=== PATIENT | male | born 1930 | race Caucasian/White ===

== ENCOUNTER → 2018-07-30 | Outpatient (CLI) | payer BC, MEDICARE ==
--- NOTE | 2018-07-30 14:31 | XR ---
EXAMINATION TYPE: XR bone survey complete DATE OF EXAM: 07/30/2018 COMPARISON: NONE HISTORY: Leukocytosis ptosis abnormal blood tests Findings: Hypertrophic and degenerative change of the visualized portion of the cervical spine seen to the leve l C5 noted. There is a kyphosis and retrolisthesis of C3 and C4. Facet arthropathy noted. Recommend f ollow-up MRI. Atherosclerotic change of the aorta. Consolidation along the medial margin the right lung base. No de structive bony lesions. Bilateral upper extremity images demonstrate no diagnostic evidence of the multiple myeloma. No defin ite intraosseous lesions seen. Calvarium is intact with no bony lesions seen. Arthropathy of the hips and degenerative change of the spine noted. No diagnostic osseous lesions. Thoracic and lumbar spine demonstrate multilevel severe degenerative disc disease and hypertrophic sp urring. Surgical clips in the right upper quadrant noted. There is a large abdominal aortic aneurysm measuring 7.2 cm. Images of the lower extremities demonstrate arthritic changes but no diagnostic evidence of multiple myeloma. Vascular calcifications are seen and there is arthropathy of the knee joint. IMPRESSION: 1. No diagnostic evidence of multiple myeloma 2. There is a 7.2 cm abdominal aortic aneurysm. Report called to the referring clinician by telephone .
== END ==
LOC: RADXRMAIN 11:16
PROVIDERS: ATTEND Internal Medicine Hematology & Oncology
DX: D72.829 Elevated white blood cell count, unspecified (principal); D60.9 Acquired pure red cell aplasia, unspecified; D69.6 Thrombocytopenia, unspecified; J44.9 Chronic obstructive pulmonary disease, unspecified
CPT/HCPCS: 77075

== ENCOUNTER 2018-11-12 12:29 | Day surgery (SDC) | payer MEDICARE ==
[2018-11-12 13:13] VITALS: TEMP 98.1
[2018-11-12] MEDS ORDERED: LACTATED RINGERS 1,000 ML IV ONE (13:40)
[2018-11-12] MEDS ORDERED: LIDOCAINE 1% 20 ML VIAL (10MG/ML) FOR IV START INTRADERMA PRN (14:20)
[2018-11-12] MEDS ORDERED: METOPROLOL TARTRATE 25 MG TAB PO STA (14:20)
[2018-11-12] MEDS ORDERED: fentaNYL (PF) 50 MCG/ML 2 ML AMP IV PRN (14:20)
[2018-11-12] MEDS ORDERED: ONDANSETRON 4 MG/2 ML VIAL IVP PRN (14:20)
[2018-11-12] MEDS ORDERED: LACTATED RINGERS 1,000 ML IV SCH (14:30)
[2018-11-12] MEDS ORDERED: LIDOCAINE 1% INJ 10MG/ML (20 ML MDV) ONE (15:19)
[2018-11-12] MEDS ORDERED: PROPOFOL 10 MG/ML 20 ML VIAL IV ONE (15:19)
--- NOTE | 2018-11-12 15:45 | P.PCN ---
Date of Procedure: 11/12/18 Description of Procedure: BRIEF HISTORY: A 87-year-old male presents for outpatient EGD for evaluation of GI bleed. Patient is currently on therapy with PPI and iron supplementation. He has a prior history of GI bleeding with from duodenal ulcers repair with open surgery in 2010. Currently the patient denies any upper GI symptoms. PROCEDURE PERFORMED: Esophagogastroduodenoscopy with biopsy. PREOPERATIVE DIAGNOSIS: GI bleeding, history of duodenal ulcers. ESTIMATED BLOOD LOSS: Minimal. IV sedation per anesthesia. PROCEDURE: After informed consent was obtained, the patient was brought into the endoscopy unit. IV sedation was administered by Anesthesia under continuous monitoring. Initially the Olympus GIF-190 video endoscope was inserted into the mouth. Esophagus intubated without any difficulty. It was gradually advanced into the stomach and duodenum and carefully examined. The bulb was significant for findings of suture from prior repair of duodenal ulcers with some erythema at the site of the sutures but no gross ulcer. The second part of the duodenum a ppeared normal. The scope at this time was withdrawn to the stomach, adequately insufflated with air, and upon careful examination, mucosa of the antrum, body, cardia and the fundus appeared grossly normal with diffuse erythema in the antrum suggestive of mild to moderate gastritis with biopsies of the antrum and body taken. The scope was then withdrawn into the esophagus. Small hiatal hernia. The GE junction was located at 43 cm from the incisors. The esophagus appeared normal. There were no erosions or ulcerations seen and the patient tolerated the procedure well. IMPRESSION: 1. Mild to moderate gastritis antrum and body, biopsied. 2. Duodenum significant for sutures in the site of prior ulcer repair with some associated erythema but no gross ulcers. Biopsies of the duodenum taken. 3. Small hiatal hernia. RECOMMENDATIONS: The findings of this examination were discussed with the patient and his daughter. Continue current medical management. Await pathology from biopsies.
[2018-11-12 16:07] VITALS: BP 159/70; RESP 18
[2018-11-12] MEDS ORDERED: ALBUTEROL NEBULIZED 2.5 MG/3 ML INHALATION ONE (16:36)
[2018-11-12 17:02] VITALS: PULSE 72
== END 2018-11-12 17:45 | disposition home or self-care (01) ==
LOC: ORWHC2ENDO 12:29
PROVIDERS: ATTEND Internal Medicine
DX: K29.50 Unspecified chronic gastritis without bleeding (principal); K44.9 Diaphragmatic hernia without obstruction or gangrene; Z87.11 Personal history of peptic ulcer disease; J44.9 Chronic obstructive pulmonary disease, unspecified; G47.33 Obstructive sleep apnea (adult) (pediatric); Z99.89 Dependence on other enabling machines and devices; Z79.899 Other long term (current) drug therapy
CPT/HCPCS: 94640; 88305; 43239; J2001; J2704